=== PATIENT | female | born 1970 | race Hispanic/Latino ===

== ENCOUNTER 2018-05-22 11:20 | Emergency (ER) | payer BC ==
[2018-05-22 11:20] VITALS: BMI 33.0
[2018-05-22 11:31] VITALS: BP 156/89; PULSE 86; RESP 18; TEMP 98.4; O2SAT 97
[2018-05-22 12:15] LABS: HCG,QUALITATIVE URINE NEGATIVE (NEGATIVE)
[2018-05-22 12:17] LABS: SQUAMOUS EPITHIAL 7 /hpf (0-5); URINE BACTERIA OCC (<OCC); URINE BILIRUBIN NEGATIVE (NEGATIVE); URINE BLOOD 1+ (NEGATIVE); URINE CLARITY Hazy (Clear); URINE COLOR Yellow (YELLOW); URINE GLUCOSE (UA) NORMAL (Normal); URINE LEUKOCYTE ESTERASE 2+ Leu/uL (Negative); URINE PROTEIN NEGATIVE (NEGATIVE); URINE UROBILINOGEN NORMAL mg/dL (0.2-1.0)
--- NOTE | 2018-05-22 12:37 | C.PDOC ---
History Of Present Illness 47 y/o female presents to ED c/o vaginal pain and swelling for the last 2 days. Notes she had intercourse 2 days ago, reports use of new brand of condom. She admits to being allergic to latex. She reports applying Monistat but notes swelling became worse. Denies fever, or any other associated symptoms. Time Seen by Provider: 05/22/18 11:35 Chief Complaint (Nursing): Female Genitourinary History Per: Patient History/Exam Limitations: no limitations Onset/Duration Of Symptoms: Days Current Symptoms Are (Timing): Still Present Quality Of Discomfort: "Pain" Recent travel outside of the [place]: No Additional History Per: Patient Past Medical History Reviewed: Historical Data, Nursing Documentation, Vital Signs Vital Signs: Last Vital Signs Temp 98.4 F 05/22/18 11:27 Pulse 86 05/22/18 11:27 Resp 18 05/22/18 11:27 BP 156/89 H 05/22/18 11:27 Pulse Ox 97 05/22/18 16:57 - Medical History PMH: Gall Bladder Disease Denies: Chronic Kidney Disease - [facility] Procedures BILAT ENDOS OCC TUBE NEC (07/07/14) INJECT/INFUSE NEC (07/20/13) Family History: States: Unknown Family Hx, Hypertension - Social History Hx Alcohol Use: Yes Hx Substance Use: No Review Of Systems Except As Marked, All Systems Reviewed And Found Negative. Constitutional: Negative for: Fever, Chills Genitourinary: Positive for: Other (vaginal pain and swelling to area) Physical Exam - Physical Exam Appears: Non-toxic, No Acute Distress Skin: Normal Color, Warm, Dry Head: Atraumatic, Normacephalic Eye(s): bilateral: Normal Inspection Cardiovascular: Rhythm Regular Respiratory: Normal Breath Sounds, No Rales, No Rhonchi, No Wheezing Gastrointestinal/Abdominal: Soft, No Tenderness Pelvic: Other (difficult to evaluate completely due to residual monistat cream; swelling noted, no lesions) Extremity: Normal ROM Neurological/Psych: Oriented x3, Normal Speech ED Course And Treatment O2 Sat by Pulse Oximetry: 97 (RA) Pulse Ox Interpretation: Normal Medical Decision Making Medical Decision Making: Plan: Urinalysis Urine culture Benadryl Diflucan Pepcid Prednisone Pt is being discharged home with instructions to follow up with OBGYN in 1-2 days. Disposition - Disposition Disposition: HOME/ ROUTINE Disposition Time: 12:35 Condition: STABLE Additional Instructions: Follow up with your OBGYN within 1-2 days. Return to ED if feel worse. Prescriptions: DiphenhydrAMINE [Benadryl] 25 mg PO .Q4-6 H #30 cap Fluconazole [Diflucan] 150 mg PO ONCE #1 tab Metronidazole [Metrogel-Vaginal] 1 ea VG QPM 7 Days #7 gel Famotidine [Pepcid] 20 mg PO BID #20 tab predniSONE [predniSONE Tab] 2 tab PO DAILY #8 tab Instructions: Vaginitis Forms: [employer] (Turkish) - Clinical Impression Clinical Impression: Vaginitis - PA / EDUCATION REVIEWER / Resident Statement MD/DO has reviewed & agrees with the documentation as recorded. - Scribe Statement The provider has reviewed the documentation as recorded by the Bobibaundrea Gallagher All medical record entries made by the Bobibaundrea were at my direction and personally dictated by me. I have reviewed the chart and agree that the record accurately reflects my personal performance of the history, physical exam, medical decision making, and the department course for this patient. I have also personally directed, reviewed, and agree with the discharge instructions and disposition.
== END 2018-05-22 12:54 | disposition home or self-care (01) ==
LOC: C.ER 11:20
DX: N76.0 Acute vaginitis (principal)